=== PATIENT | male | born 1950 | race Two or more races ===

== ENCOUNTER 2017-07-22 22:31 | Inpatient (IN) | END 2017-08-01 17:23 | disposition home or self-care (01) | DRG 666 ==

== ENCOUNTER 2017-08-08 17:52 | Inpatient (IN) | END 2017-08-16 18:20 | disposition home or self-care (01) | DRG 872 ==

== ENCOUNTER 2017-08-18 18:32 | Emergency (ER) | END 2017-08-18 19:13 | disposition left against medical advice (07) ==

== ENCOUNTER 2017-08-24 22:08 | Inpatient (IN) | END 2017-08-29 16:50 | disposition home or self-care (01) | DRG 687 ==